=== PATIENT | male | born 1975 | race Caucasian/White ===

== ENCOUNTER 2021-02-25 07:23 | Emergency (ER) | payer MEDICAID ==
[~2021-02-25] VITALS: Ht 180.3 cm; Wt 97.2 kg
[2021-02-25 07:29] VITALS: BP 107/73
--- NOTE | 2021-02-25 07:30 | NUR ---
Patient ambulated to bed 3. RN evaluating the patient at bedside.
--- NOTE | 2021-02-25 07:50 | NUR ---
45/M FROM [facility] FOR EPIGASTRIC PAIN WITH N/V X1 DAY. PT REPORTS 1 EPISODE OF VOMITTING PRIOR TO ARRIVAL APPROX 1 HR. NO OBVIOUS DISTRESS NOTED.
[2021-02-25] MEDS ORDERED: ONDANSETRON 4 MG/2 ML VIAL IVP ONE (07:55)
[2021-02-25] MEDS ORDERED: DICYCLOMINE HCL LIQUID 20 MG, ALUMINUM HYD/MAG/SIMETHICONE 30 ML, LIDOCAINE VISCOUS 2% ... PO ONE ×3 (07:55)
[2021-02-25] MEDS ORDERED: MORPHINE SULFATE 4 MG/ML SYR IVP ONE (07:55)
[2021-02-25] MEDS ORDERED: ONDANSETRON 4 MG/2 ML VIAL ONE (07:58)
[2021-02-25] MEDS ORDERED: MORPHINE SULFATE 4 MG/ML SYR ONE (07:58)
[2021-02-25] MEDS ORDERED: ALUMINUM HYD/MAG/SIMETHICONE 30 ML UDC ONE (08:00)
[2021-02-25] MEDS ORDERED: LIDOCAINE VISCOUS 2% 20 ML UDC ONE (08:00)
[2021-02-25] MEDS ORDERED: DICYCLOMINE HCL LIQUID 10 MG/5 ML UDC ONE (08:00)
--- NOTE | 2021-02-25 08:00 | NUR ---
PT TAKEN TO CT VIA [facility]
--- NOTE | 2021-02-25 08:00 | NUR ---
Dr. Pagan is evaluating the patient at bedside.
--- NOTE | 2021-02-25 08:06 | NUR ---
Patient returned from CT scan.
--- NOTE | 2021-02-25 08:25 | NUR ---
MULTIPLE ATTEMPTS FOR IV ACCESS MADE. DR LE AWARE. NO IV ACCESS REQUIRED AT THIS TIME PER MD.
[2021-02-25] MEDS ORDERED: KETOROLAC 30 MG/ML VIAL IM ONE (08:30)
--- NOTE | 2021-02-25 08:39 | NUR ---
LAB AT BEDSIDE
--- NOTE | 2021-02-25 08:45 | NUR ---
HIPOLITO PERDOMO UNABLE TO DRAW LABS. DR LUGO MADE AWARE.
[2021-02-25 09:53] LABS: BASOPHILS # (AUTO) 0.1 K/uL (0.00-0.22); BASOPHILS % (AUTO) 0.4 % (0.0-2.0); EOSINOPHILS % (AUTO) 0.1 % (0.0-4.0); HEMATOCRIT 49.2 % (36-52); HEMOGLOBIN 16.9 g/dL (12.0-18.0); LYMPHOCYTES # (AUTO) 0.9 K/uL (2.0-11.5); LYMPHOCYTES % (AUTO) 5.4 % (20.5-51.1); MEAN CORPUSCULAR HEMOGLOBIN 31 pg (27-31); MEAN CORPUSCULAR HGB CONC 34 g/dL (33-37); MEAN CORPUSCULAR VOLUME 90.6 fL (80-94); MONOCYTES # (AUTO) 0.3 K/uL (0.8-1.0); MONOCYTES % (AUTO) 1.9 % (1.7-9.3); NEUTROPHILS # (AUTO) 15.2 K/uL (1.8-7.7); NEUTROPHILS % (AUTO) 92.2 % (42.2-75.2); PLATELET COUNT (AUTO) 396 K/uL (140-450); RED BLOOD CELL COUNT(AUTO) 5.44 MIL/uL (4.20-6.10); RED CELL DISTRIBUTION WIDTH 12.6 % (11.6-13.7)
[2021-02-25] MEDS ORDERED: ONDANSETRON 4 MG ODT PO ONE (10:00)
--- NOTE | 2021-02-25 10:38 | NUR ---
PT STATES 7/10 PAIN AND NAUSEA, BP 197/116 ERMD MADE AWARE
[2021-02-25 11:01] LABS: WHITE BLOOD COUNT (AUTO) 16.5 K/uL (4.8-10.8)
[2021-02-25 11:06] LABS: APPEARANCE,URINE CLEAR (CLEAR); BILIRUBIN,URINE NEGATIVE (NEGATIVE); BLOOD, URINE NEGATIVE (NEGATIVE); COLOR,URINE YELLOW (YELLOW); LEUKOCYTE ESTERASE ,URINE NEGATIVE (NEGATIVE); NITRITE, URINE NEGATIVE (NEGATIVE); UGLUCOSE 2+ (NEGATIVE)
[2021-02-25 11:12] LABS: ANION GAP 14.8 (8-16); CARBON DIOXIDE 23.8 mmol/L (21-32); CREATININE 0.8 mg/dL (0.6-1.3); POTASSIUM 3.6 mmol/L (3.5-5.1)
[2021-02-25 11:20] LABS: RBC,URINE 0-5 /HPF (0-5); WBC,URINE 0-5 /HPF (0-5)
[2021-02-25 11:24] LABS: ALBUMIN 3.7 g/dL (3.4-5.0); TOTAL BILIRUBIN 0.4 mg/dL (0.0-1.0)
[2021-02-25] MEDS ORDERED: SULF-59 PO (11:50)
[2021-02-25] MEDS ORDERED: BEN10 PO (11:50)
[2021-02-25 12:05] VITALS: BP 197/116
--- NOTE | 2021-02-25 12:05 | NUR ---
Patient discharged with v/s stable. Written and verbal after care instructions given and explained. Patient alert, oriented and verbalized understanding of instructions. Ambulatory with steady gait. All questions addressed prior to discharge. ID band removed. Patient advised to follow up with PMD. Rx of BENTYL AND BACTRIM DS TABLET given. Patient educated on indication of medication including possible reaction and side effects. Opportunity to ask questions provided and answered.
== END 2021-02-25 12:05 | disposition home or self-care (01) ==
LOC: MED 07:23
DX: L03.114 Cellulitis of left upper limb (principal); F15.10 Other stimulant abuse, uncomplicated; R10.10 Upper abdominal pain, unspecified; F17.210 Nicotine dependence, cigarettes, uncomplicated; F15.90 Other stimulant use, unspecified, uncomplicated; Z79.899 Other long term (current) drug therapy; Z98.890 Other specified postprocedural states
CPT/HCPCS: 36415; 74176; 80053; 81001; 83690; 85025; 96372; 99284; J1885; J2270; J2405; Q0162; 81002

== ENCOUNTER 2022-04-09 19:23 | Emergency (ER) | payer MEDICAID ==
[~2022-04-09] VITALS: Ht 180.3 cm; Wt 104.3 kg
[~2022-04-09 19:23] MED LIST: BEN10 PO; SULF-59 PO
[2022-04-09 20:05] VITALS: BP 180/71
[2022-04-09] MEDS ORDERED: OFLO5SOL27 RIGHT EAR (22:12)
[2022-04-09] MEDS ORDERED: IBUP-2213 PO (22:13)
[2022-04-09 22:21] VITALS: BP 180/71
--- NOTE | 2022-04-10 00:26 | NUR ---
Patient discharged with v/s stable. Written and verbal after care instructions given and explained. Patient alert, oriented and verbalized understanding of instructions. Ambulatory with steady gait. All questions addressed prior to discharge. ID band removed. Patient advised to follow up with PMD. Rx of IBUPROFEN & OFLOXACIN given. Patient educated on indication of medication including possible reaction and side effects. Opportunity to ask questions provided and answered.
== END 2022-04-10 00:26 | disposition home or self-care (01) ==
LOC: MED 19:23
DX: H60.91 Unspecified otitis externa, right ear (principal); Z79.899 Other long term (current) drug therapy
CPT/HCPCS: 99283

== ENCOUNTER 2022-07-03 23:46 | Emergency (ER) | payer MEDICAID ==
[~2022-07-03] VITALS: Ht 180.3 cm; Wt 104.3 kg
[~2022-07-03 23:46] MED LIST changes: +IBUP-2213 PO; +OFLO5SOL27 RIGHT EAR
[2022-07-04] VITALS: BP 109/89
--- NOTE | 2022-07-04 00:05 | NUR ---
to bed ambulatory
[2022-07-04] MEDS ORDERED: KETOROLAC 60 MG/2 ML VIAL IM ONE (00:10)
--- NOTE | 2022-07-04 00:30 | NUR ---
Pt coming from home ambulatory with steady gait. Pt c/o right hip pain that started a couple days ago and also has dysuria. No fever and VSS. A&Ox4. Skin intact. Pt rates pain 8/10 non-radiating. No chest pain and no sob. Denies n/v. States has never had a UTI before. Bed in low position.
--- NOTE | 2022-07-04 00:37 | NUR ---
Pt unable to provide urine sample at this time. Water given to pt.
[2022-07-04] MEDS ORDERED: KETO10TA2 PO (01:02)
[2022-07-04] MEDS ORDERED: CEPH-588 PO (01:02)
--- NOTE | 2022-07-04 01:05 | NUR ---
Pt still unable to provide urine. ER physician notified.
--- NOTE | 2022-07-04 01:19 | NUR ---
Discharged pt and educated pt on discharge instructions. Pt verbalized understanding with no further questions. Pt is A&Ox4, Ambulatory with steady gait. Skin intact. VSS. No c/o. No IV intact.
[2022-07-04 01:20] VITALS: BP 129/77
== END 2022-07-04 01:19 | disposition home or self-care (01) ==
LOC: MED 23:46
DX: R10.9 Unspecified abdominal pain (principal); R30.0 Dysuria; M54.50 Low back pain, unspecified; Z79.1 Long term (current) use of non-steroidal anti-inflammatories (NSAID); Z79.2 Long term (current) use of antibiotics; Z79.899 Other long term (current) drug therapy
CPT/HCPCS: 96372; 99283; J1885

== ENCOUNTER 2024-01-08 14:52 | Emergency (ER) | payer MEDICAID ==
[~2024-01-08] VITALS: Ht 180.3 cm; Wt 109.3 kg
[~2024-01-08 14:52] MED LIST changes: +CEPH-588 PO; +KETO10TA2 PO
[2024-01-08 15:04] VITALS: BP 206/95; PULSE 72; RESP 19; TEMP 97.8; O2SAT 100
[2024-01-08] MEDS: MORPHINE SULFATE 4 MG/ML SYR IVP ONE ×3 (16:15→18:01)
[2024-01-08] MEDS: NACL 0.9% 1,000 ML IV SCH (16:29)
[2024-01-08] MEDS: ONDANSETRON 4 MG/2 ML VIAL IVP ONE (16:29)
[2024-01-08] MEDS ORDERED: MORPHINE SULFATE 4 MG/ML SYR ONE (17:05)
[2024-01-08] MEDS ORDERED: AZIT250T4 PO (18:06)
[2024-01-08] MEDS ORDERED: ACET-8905 PO (18:07)
[2024-01-08] MEDS ORDERED: IBUP-2213 PO (18:07)
[2024-01-08] MEDS ORDERED: ONDA8TAB87 PO (18:07)
[2024-01-08 18:23] VITALS: BP 158/65; PULSE 67; RESP 14; TEMP 97.1; O2SAT 100
== END 2024-01-08 18:24 | disposition home or self-care (01) ==
LOC: MED 14:52
DX: R10.84 Generalized abdominal pain (principal); J18.9 Pneumonia, unspecified organism; F17.200 Nicotine dependence, unspecified, uncomplicated; Z79.899 Other long term (current) drug therapy
CPT/HCPCS: 74176; 96361; 96374; 96375; 96376; 99285; J2270; J2405; J7030